=== PATIENT | female | born 1990 | race Caucasian/White ===

== ENCOUNTER 2021-02-03 06:44 | Inpatient (IN) | payer BC ==
[2021-02-03] MEDS ORDERED: METHYLERGONOVINE 0.2 MG/ML 1 ML AMP IM PRN (06:58)
[2021-02-03] MEDS ORDERED: CARBOPROST TROMETHAMINE 250 MCG/ML 1 ML AMP IM PRN (06:58)
[2021-02-03] MEDS ORDERED: LIDOCAINE 0.5% (PF) 5 MG/ML (50 ML SDV) SQ PRN (06:58)
[2021-02-03] MEDS ORDERED: OXYTOCIN 10 UNIT/ML 1 ML VIAL IM PRN (06:58)
[2021-02-03] MEDS ORDERED: TERBUTALINE 1 MG/ML VIAL SQ PRN (06:58)
[2021-02-03] MEDS ORDERED: LACTATED RINGERS 1,000 ML IV SCH (07:00)
[2021-02-03 07:18] LABS: Basophils % (A) 0 %; Eosinophils # (A) 0.1 k/uL (0-0.7); Eosinophils % (A) 1 %; HCT 38.7 % (34.0-46.0); HGB 13.2 gm/dL (11.4-16.0); Lymphocytes % (A) 17 %; MCH 29.4 pg (25.0-35.0); MCHC 34.1 g/dL (31.0-37.0); MCV 86.1 fL (80.0-100.0); Mean Platelet Volume 8.4; Monocytes # (A) 0.6 k/uL (0-1.0); Monocytes % (A) 5 %; Neutrophils # (A) 8.4 k/uL (1.3-7.7); Neutrophils % (A) 75 %; Platelet Count 204 k/uL (150-450); RBC 4.49 m/uL (3.80-5.40); RDW 13.1 % (11.5-15.5); WBC 11.2 k/uL (3.8-10.6)
--- NOTE | 2021-02-03 07:34 | P.HPOB ---
History of Present Illness H&P Date: 02/03/21 Chief Complaint: labor 30 year old presents at 39 weeks 4 days in labor. Her cervix is 8 cm dilated, her percent effaced, and -2 station. She is tamra irregularly about every 4 minutes. heart tones 130 with moderate variability and reactive. Review of Systems All systems: negative Constitutional: Denies chills, Denies fever Eyes: denies blurred vision, denies pain Ears, nose, mouth and throat: Denies headache, Denies sore throat Cardiovascular: Denies chest pain, Denies shortness of breath Respiratory: Denies cough Gastrointestinal: Denies abdominal pain, Denies diarrhea, Denies nausea, Denies vomiting Genitourinary: Denies dysuria, Denies hematuria Musculoskeletal: Denies myalgias Integumentary: Denies pruritus, Denies rash Neurological: Denies numbness, Denies weakness Psychiatric: Denies anxiety, Denies depression Endocrine: Denies fatigue, Denies weight change Past Medical History Past Medical History: No Reported History Additional Past Medical History / Comment(s): Obstetrical history: She's had one previous vaginal delivery. She's had care with Dr. Baum. Blood type A+, abs negative, rubella immune, RPR nonreactive, placed B-, GBS negative. History of Any Multi-Drug Resistant Organisms: None Reported Additional Past Surgical History / Comment(s): Cyst removal Past Anesthesia/Blood Transfusion Reactions: No Reported Reaction Past Psychological History: Depression Smoking Status: Never smoker Past Alcohol Use History: None Reported Past Drug Use History: None Reported - Past Family History Mother Family Medical History: Thyroid Disorder Additional Family Medical History / Comment(s): Thyroid cancer Medications and Allergies Home Medications Medication Instructions Recorded Confirmed Type Pnv No.95/Ferrous Fum/Folic AC 1 each PO DAILY 02/03/21 02/03/21 History [ Multivitamin Tablet] Sertraline [Zoloft] 12.5 mg PO DAILY 02/03/21 02/03/21 History Allergies Allergy/AdvReac Type Severity Reaction Status Date / Time No Known Allergies Allergy Verified 02/03/21 06:48 Exam Osteopathic Statement: *. No significant issues noted on an osteopathic structural exam other than those noted in the History and Physical/Consult. Vital Signs Temp Pulse Resp BP 02/03/21 06:59 96.9 F L 88 16 120/78 02/03/21 06:53 96.9 F L 88 18 120/78 Intake and Output 02/02/21 02/03/21 02/03/21 22:59 06:59 14:59 Other: Weight 77.111 kg Heart: Regular rate and rhythm Lungs: Clear to auscultation bilaterally Abdomen: Soft, nontender Extremities: Negative Homans sign Results Result Diagrams: 02/03/21 07:00 Abnormal Lab Results - Last 24 Hours (Table) 02/03/21 Range/Units 07:00 WBC 11.2 H (3.8-10.6) k/uL Neutrophils # 8.4 H (1.3-7.7) k/uL Assessment and Plan (1) Normal labor Current Visit: Yes Status: Acute Code(s): O80 - ENCOUNTER FOR FULL-TERM UNCOMPLICATED DELIVERY; Z37.9 - OUTCOME OF DELIVERY, UNSPECIFIED SNOMED Co de(s): [id number] Plan: 1. Expectant management 2. Anticipate normal vaginal delivery
[2021-02-03] MEDS ORDERED: AMPICILLIN 2,000 MG in SODIUM CHLORIDE 0.9% 100 ML IVPB STA (07:50)
[2021-02-03] MEDS ORDERED: ACETAMINOPHEN TAB 325 MG TAB PO PRN (08:30)
[2021-02-03] MEDS ORDERED: diphenhydrAMINE 25 MG CAP PO PRN (08:30)
[2021-02-03] MEDS ORDERED: OXYTOCIN 30 UNITS/500 ML NS 30 UNIT in SALINE 1 500ML.BAG IV SCH (08:30)
[2021-02-03] MEDS ORDERED: HYDROCORTISONE 2.5% RECTAL CREAM 30 GM TUBE RECTAL PRN (08:30)
[2021-02-03] MEDS ORDERED: diphenhydrAMINE 50 MG CAP PO PRN (08:30)
[2021-02-03] MEDS ORDERED: ZOLPIDEM 5 MG TAB PO PRN (08:30)
[2021-02-03] MEDS ORDERED: LANOLIN CREAM 5 GM TUBE TOPICAL PRN (08:30)
[2021-02-03] MEDS ORDERED: SIMETHICONE 80 MG CHEWABLE PO PRN (08:30)
[2021-02-03] MEDS ORDERED: BENZOCAINE/MENTHOL SPRAY 1 GM/SPRAY AEROSOL TOPICAL PRN (08:30)
[2021-02-03] MEDS ORDERED: diphenhydrAMINE 50 MG/ML 1 ML VIAL IVP PRN ×2 (08:30)
--- NOTE | 2021-02-03 08:34 | P.PROBDLV ---
Vaginal Delivery Note - . Vaginal Delivery Note: 30 year old presents at 39 weeks 4 days in labor. Her cervix is 8 cm dilated, her percent effaced, and -2 station. She is tamra irregularly about every 4 minutes. heart tones 130 with moderate variability and reactive. Amniotomy performed at 7:20 AM meconium stained fluid noted. Her cervix was completely dilated at 8am. She pushed, delivered a viable female over intact perineum at 8:16 AM. Head delivered OA, nuchal cord 1 easily reduced, anterior shoulder delivered gentle downward guidance posterior shoulder and rest of body. Nose and mouth bulb suctioned, cord cut, infant placed on mother's abdomen. Apgars 9, 10, weight 6 lbs. 13 oz. Placenta delivered spontaneous the, intact with three-vessel cord at 8:19 AM. Vagina, cervix, perineum inspected. Second-degree midline laceration was repaired with 3-0 Vicryl. Estimated blood loss 200 mL. Mother and baby in stable condition.
[2021-02-03] MEDS: IBUPROFEN 600 MG TAB PO SCH ×3 (08:44→22:34)
[2021-02-03 08:58] VITALS: RESP 18
[2021-02-03] MEDS ORDERED: AMPICILLIN 1,000 MG in SODIUM CHLORIDE 0.9% 50 ML IVPB SCH (12:00)
[2021-02-03] MEDS: SENNOSIDES-DOCUSATE SODIUM 1 EACH TAB PO SCH (19:55)
[2021-02-04 08:05] LABS: Basophils # (A) 0.1 k/uL (0-0.2); Basophils % (A) 0 %; Eosinophils # (A) 0.1 k/uL (0-0.7); Eosinophils % (A) 1 %; HCT 34.9 % (34.0-46.0); HGB 11.8 gm/dL (11.4-16.0); Lymphocytes # (A) 2.5 k/uL (1.0-4.8); Lymphocytes % (A) 20 %; MCH 29.6 pg (25.0-35.0); MCHC 33.8 g/dL (31.0-37.0); MCV 87.7 fL (80.0-100.0); Mean Platelet Volume 8.3; Monocytes # (A) 0.7 k/uL (0-1.0); Monocytes % (A) 5 %; Neutrophils # (A) 9.3 k/uL (1.3-7.7); Neutrophils % (A) 72 %; Platelet Count 193 k/uL (150-450); RBC 3.98 m/uL (3.80-5.40); RDW 13.2 % (11.5-15.5); WBC 12.8 k/uL (3.8-10.6)
[2021-02-04 08:15] VITALS: BP 107/74; PULSE 87; TEMP 98.5
[2021-02-04] MEDS: IBUPROFEN 600 MG TAB PO SCH (08:19)
[2021-02-04] MEDS: SENNOSIDES-DOCUSATE SODIUM 1 EACH TAB PO SCH (08:19)
--- NOTE | 2021-02-04 08:46 | P.DS ---
Providers Date of admission: 02/03/21 06:53 Expected date of discharge: 02/04/21 Attending physician: Jaci Baum Primary care physician: Stated None Hospital Course: This is a 30-year-old female 3 para 1 at 39-4/7 weeks who presented in active labor. She delivered vaginally a viable female infant with scores of 9 at 1 minute and 10 at 5 minutes and infant weight of 6 lbs. 13 oz. Her course has been uncomplicated. Lochia has been decreasing. Pain is fairly well controlled with ibuprofen. She is breast-feeding. Vital signs are stable. Abdomen is soft with fundus firm and nontender. Extremities show negative Homans. Impression is status post vaginal delivery day #1. Plan is to discharge home today. Routine instructions are given. She is advised follow-up in the office in 6 weeks for check. She is advised to call the office if she has any further questions or concerns prior to her appointment time. She will be given a prescription for ibuprofen. She will continue her Zoloft and may increase her dose as needed. She also will be given a prescription for breast pump. Procedures: Spontaneous vaginal delivery of a viable female on 02/03/2021 Patient Condition at Discharge: Stable Plan - Discharge Summary New Discharge Prescriptions: No Action Pnv No.95/Ferrous Fum/Folic AC [ Multivitamin Tablet] 1 each PO DAILY Sertraline [Zoloft] 12.5 mg PO DAILY Discharge Medication List Pnv No.95/Ferrous Fum/Folic AC [ Multivitamin Tablet] 1 each PO DAILY 02/03/21 [History] Sertraline [Zoloft] 12.5 mg PO DAILY 02/03/21 [History] Follow up Appointment(s)/Referral(s): Jaci Baum DO [Doctor of Osteopathic Medicine] - 6 Weeks Activity/Diet/Wound Care/Special Instructions: Instructions 1. Do not begin any exercise program for 3 weeks. 2. Do not resume sexual relations for 3 weeks or longer if uncomfortable. 3. You may take tub baths or showers at any time. 4. You may use tampons if desired after 3 weeks. 5. Keep the area of episiotomy (stitches) clean and dry. 6. If you are not nursing, wear a good fitting, supportive bra during the day and limit fluid intake for at least 1 week to prevent breast engorgement. 7. Call the office, [phone], within the next week to make appointment for your 6 week checkup if it has not already been made. 8. Report any of the following occurrences to the doctor promptly: a. Heavy, excessive bleeding b. Chills, fever c. Burning or frequency of urination d. Pain or redness and breasts if nursing e. Increasing pain or swelling in episiotomy (stitches). In addition to the above instructions, the following additional should be followed: 1. No heavy lifting or straining (exercising) until after 6 week checkup. 2. Keep abdominal incision clean and dry: You may wear a dressing if more comfortable. 3. Make office appointment for 10 days after going home or as instructed by her doctor. Discharge Disposition: HOME SELF-CARE
--- NOTE | 2021-02-04 11:34 | P.MSEPDOC ---
Presenting Problems - Arrival Data Date of Arrival on Unit: 02/03/21 Time of Arrival on Unit: 06:55 Mode of Transport: Ambulatory - Complaint OB-Reason for Admission/Chief Complaint: Possible Onset of Labor Comment: Patient presents with contractions that started around 0100 this am approximately 5-6 minutes apart. Medical History - Information : 3 Para: 1 Term: 1 : 0 Abortions: Spontaneous or Elective: 1 Number of Living Children: 1 - Gestational Age Gestational Age by MIRANDA (wks/days): 39 Weeks and 4 Days Review of Systems - Review of Systems Constitutional: No problems Breast: No problems ENT: No problems Cardiovascular: No problems Respiratory: No problems Gastrointestinal: No problems Genitourinary: No problems Musculoskeletal: No problems Neurological: No problems Skin: No problems Vital Signs - Temperature Temperature: 98.5 F Temperature Source: Oral - Pulse Pulse Oximetery Pulse Rate: 87 Pulse Assessment Method: Pulse Oximetry - Respirations Respiratory Rate: 18 Oxygen Delivery Method: Room Air O2 Sat by Pulse Oximetry: 98 - Blood Pressure Sitting Blood Pressure: 107/74 Blood Pressure Mean: 85 Blood Pressure Source: Automatic Cuff Medical Screen Scoring (Pre) - Cervical Exam Dilation: 8-10 cm = 3 Effacement: More than 50% = 2 Membranes: Intact - Uterine Contractions Frequency: > or = 36 weeks =2 Duration: > 40 seconds = 2 Intensity: Contraction palpated strong = 1 - Maternal Vital Signs Maternal Temperature: N/A Maternal Blood Pressure: N/A Signs of Preeclampsia: N/A Maternal Respirations: N/A - Maternal Trauma Maternal Trauma: N/A - Assessment - Baby A Baseline FHR: 145 Heart Rate - NICHD Category: Category I (Normal) = 0 NST: Reactive Position: N/A Station: N/A - Total Score - Baby A Total Score - Baby A: 10 - Total Score - Baby B Total Score - Baby B: 10 - Total Score - Baby C Total Score - Baby C: 10 - Level of Risk - Baby A Level of Risk - Baby A: High (10+) - Level of Risk - Baby B Level of Risk - Baby B: High (10+) - Level of Risk - Baby C Level of Risk - Baby C: High (10+) Physician Notification (Pre) - Physician Notified Physician Notified Date: 02/03/21 Physician Notified Time: 06:53 New Order Received: Yes Disposition - Disposition OB Disposition: Admit, LDRP Suite Transferred to:: Suite 15 I agree with the RN Medical Screening Exam: Yes Case reviewed; plan agreed upon as documented in EMR&OBIX.: Yes Diagnosis: ENCOUNTER FOR FULL-TERM UNCOMPLICATED DELIVERY
== END 2021-02-04 10:20 | disposition home or self-care (01) | DRG 807 ==
LOC: FBPOP 06:44 → 4FBP 06:53
PROVIDERS: ADMIT Obstetrics & Gynecology; ATTEND Obstetrics & Gynecology
PROC: 10E0XZZ Delivery of Products of Conception, External Approach (ICD-10-PCS; principal; 2021-02-03)
PROC: 0KQM0ZZ Repair Perineum Muscle, Open Approach (ICD-10-PCS; 2021-02-03)
DX: O69.81X0 Labor and delivery complicated by cord around neck, without compression, not applicable or unspecified (principal); Z37.0 Single live birth; O70.1 Second degree perineal laceration during delivery; O77.0 Labor and delivery complicated by meconium in amniotic fluid; Z3A.39 39 weeks gestation of pregnancy; Z80.8 Family history of malignant neoplasm of other organs or systems
CPT/HCPCS: 59025; 85025; 86850; 86900; 86901; 99213

== ENCOUNTER → 2023-01-19 | Outpatient (CLI) | payer BC ==
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
== END | disposition home or self-care (01) ==
LOC: RADUSWWP 10:09
PROVIDERS: ATTEND Obstetrics & Gynecology
DX: N83.02 Follicular cyst of left ovary (principal); N83.01 Follicular cyst of right ovary; Z15.09 Genetic susceptibility to other malignant neoplasm
CPT/HCPCS: 76830; 86304